=== PATIENT | female | born 1990 | race Two or more races ===

== ENCOUNTER 2017-02-10 12:15 | Inpatient (IN) | payer OTHER ==
[2017-02-10] MEDS ORDERED: ONDANSETRON 4 MG/2 ML VIAL IVPUSH ONE (14:59)
[2017-02-10] MEDS ORDERED: FAMOTIDINE 20 MG/50 ML IVPB 50 ML IVPB ONE ×2 (15:00→15:03)
[2017-02-10] MEDS ORDERED: SODIUM CHLORIDE 0.9% 1000 ML INFUS.BAG IV ONE (15:00)
[2017-02-10] MEDS ORDERED: ONDANSETRON 4 MG/2 ML VIAL ONE (15:03)
[2017-02-10] MEDS ORDERED: morphine CARPU-JECT 4 MG/1 ML DISP.SYRIN IVPUSH ONE (15:27)
--- NOTE | 2017-02-10 15:27 | PDOC ---
History of Present Illness - General History Source: Patient Exam Limitations: No Limitations <Vangie Thomason - Last Filed: 02/10/17 17:22> - General History Source: Patient Exam Limitations: No Limitations - History of Present Illness Initial Comments: 02/10/17 15:33 Patient is a 26 year old female, , with a significant past medical history of pituitary adenoma and s/p C section 5 weeks ago who presents to the ED with nausea, vomiting and abdominal pain since last night. Patient states that she developed diffuse abdominal pain burning in nature followed by nausea and 10 episodes of vomiting. Patient states that she drank 2-3 alcoholic drinks last night. She reports mild headache. She denies any hx of htn, hx of gallstones or pancreatitis. PCP - Dr. Dieter WALTON - Dr. Ritter <Fransisca Mckeon - Last Filed: 02/10/17 17:41> <Aniyah Camilo - Last Filed: 02/10/17 21:42> - General Chief Complaint: Lightheaded Stated Complaint: FATIGUE, DIZZINESS (POST-PREG) Past History - Reproductive History (#): 0 Para: 0 - Immunization History Td Vaccination: No TDAP Vaccination: No Immunization Up to Date: Yes - Psycho/Social/Smoking Cessation Hx Anxiety: No Suicidal Ideation: No Smoking Status: No Smoking History: Never smoked Have you smoked in the past 12 months: No Number of Cigarettes Smoked Daily: 0 Hx Alcohol Use: Yes (SOCIAL) Drug/Substance Use Hx: No Substance Use Type: None <Vangie Thomason - Last Filed: 02/10/17 17:22> <Fransisca Mckeon - Last Filed: 02/10/17 17:41> <Aniyah Camilo - Last Filed: 02/10/17 21:42> - Past Medical History Allergies/Adverse Reactions: Allergies Allergy/AdvReac Type Severity Reaction Status Date / Time No Known Allergies Allergy Verified 02/10/17 12:24 Home Medications: Ambulatory Orders Vit/Iron Fumarate/FA [ Tablet] 1 each PO DAILY 04/20/16 Review of Systems - Review of Systems Able to Perform ROS?: Yes Comments:: 02/10/17 15:34 GENERAL/CONSTITUTIONAL: No fever or chills. No weakness. HEAD, EYES, EARS, NOSE AND THROAT: No change in vision. No ear pain or discharge. No sore throat. GASTROINTESTINAL: +nausea, +vomiting, +abdominal pain. No diarrhea or constipation. GENITOURINARY: No dysuria, frequency, or change in urination. CARDIOVASCULAR: No chest pain or shortness of breath. RESPIRATORY: No cough, wheezing, or hemoptysis. MUSCULOSKELETAL: No joint or muscle swelling or pain. No neck or back pain. SKIN: No rash NEUROLOGIC: +headache. No vertigo, loss of consciousness, or change in strength/ sensation. ENDOCRINE: No increased thirst. No abnormal weight change. HEMATOLOGIC/LYMPHATIC: No anemia, easy bleeding, or history of blood clots. ALLERGIC/IMMUNOLOGIC: No hives or skin allergy. <Fransisca Mckeon - Last Filed: 02/10/17 17:41> *Physical Exam - Vital Signs Last Vital Signs Temp Pulse Resp BP Pulse Ox 98.0 F 77 20 140/83 99 02/10/17 12:21 02/10/17 12:21 02/10/17 12:21 02/10/17 12:21 02/10/17 12:21 <Vangie Thomason - Last Filed: 02/10/17 17:22> - Vital Signs Last Vital Signs Temp Pulse Resp BP Pulse Ox 98.0 F 77 20 140/83 99 02/10/17 12:21 02/10/17 12:21 02/10/17 12:21 02/10/17 12:21 02/10/17 12:21 - Physical Exam Comments: 02/10/17 15:36 GENERAL: Awake, alert, and fully oriented, in no acute distress HEAD: No signs of trauma EYES: PERRLA, EOMI, sclera anicteric, conjunctiva clear ENT: Auricles normal inspection, nares patent, Moist mucosa NECK: Normal ROM, supple, no lymphadenopathy, JVD, or masses LUNGS: Breath sounds equal, clear to auscultation bilaterally. No wheezes, and no crackles HEART: Regular rate and rhythm, normal S1 and S2, no murmurs, rubs or gallops ABDOMEN: (+)Abdomen epigastric RUQ tenderness, lower abdominal tenderness, +C section Incision site is clean, dry and intact, No palpable hernia, erythema. No CVA. Soft, normoactive bowel sounds. No guarding, no rebound. No masses EXTREMITIES: Normal range of motion, no edema. No clubbing or cyanosis. No cords, erythema, or tenderness NEUROLOGICAL: Normal speech SKIN: Warm, Dry, normal turgor, no rashes or lesions noted. <Fransisca Mckeon - Last Filed: 02/10/17 17:41> - Vital Signs Last Vital Signs Temp Pulse Resp BP Pulse Ox 98.0 F 74 16 134/75 100 02/10/17 12:21 02/10/17 16:48 02/10/17 16:48 02/10/17 17:40 02/10/17 19:16 <Aniyah Camilo - Last Filed: 02/10/17 21:42> Procedures - Bedside Ultrasound Bedside Ultrasound: Gallbladder Other: cholelithiasis: see [facility] for report <Vangie Thomason - Last Filed: 02/10/17 17:22> ED Treatment Course - LABORATORY CBC & Chemistry Diagram: 02/10/17 15:20 02/10/17 15:20 - Medications Given in the ED: ED Medications Discontinued Medications Generic Name Dose Route Start Last Admin Trade Name Freq PRN Reason Stop Dose Admin Ondansetron HCl 4 mg 02/10/17 14:59 02/10/17 15:19 Zofran Injection IVPUSH 02/10/17 15:00 4 mg ONCE ONE Administration Sodium Chloride 1,000 ml 02/10/17 15:00 02/10/17 15:19 Normal Saline - IV 02/10/17 15:01 1,000 ml ONCE ONE Administration <Vangie Thomason - Last Filed: 02/10/17 17:22> - LABORATORY CBC & Chemistry Diagram: 02/10/17 15:20 02/10/17 15:20 - Medications Given in the ED: ED Medications Discontinued Medications Generic Name Dose Route Start Last Admin Trade Name Freq PRN Reason Stop Dose Admin Famotidine/Sodium Chloride 50 mls @ 100 mls/hr 02/10/17 15:00 02/10/17 15:20 Pepcid 20 Mg Premixed Ivpb - IVPB 02/10/17 15:29 100 mls/hr ONCE ONE Administration Ondansetron HCl 4 mg 02/10/17 14:59 02/10/17 15:19 Zofran Injection IVPUSH 02/10/17 15:00 4 mg ONCE ONE Administration Sodium Chloride 1,000 ml 02/10/17 15:00 02/10/17 15:19 Normal Saline - IV 02/10/17 15:01 1,000 ml ONCE ONE Administration <Fransisca Mckeon - Last Filed: 02/10/17 17:41> - LABORATORY CBC & Chemistry Diagram: 02/10/17 15:20 02/10/17 15:20 - ADDITIONAL ORDERS Additional order review: Laboratory Results 02/10/17 02/10/17 02/10/17 18:20 18:20 18:00 D-Dimer Sodium Potassium Chloride Carbon Dioxide Anion Gap BUN Creatinine Creat Clearance w eGFR Random Glucose Uric Acid 3.6 Calcium Total Bilirubin AST ALT Alkaline Phosphatase LD Total 236 Total Protein Albumin Lipase Urine Color Red Urine Appearance Clear Urine pH 7.0 Urine Protein Negative Urine Glucose (UA) Negative Urine Ketones 1+ H Urine Blood Negative Urine Nitrite Negative Urine Bilirubin Negative Urine Urobilinogen Negative Ur Leukocyte Esterase Trace H Urine RBC 1 Urine WBC 2 Ur Epithelial Cells Rare Urine Mucus Rare Urine HCG, Qual Negative 02/10/17 02/10/17 18:00 15:20 D-Dimer < 200 Sodium 135 L Potassium 4.1 Chloride 99 Carbon Dioxide 26 Anion Gap 10 BUN 7 D Creatinine 0.6 Creat Clearance w eGFR > 60 Random Glucose 88 Uric Acid Calcium 8.8 Total Bilirubin 0.3 AST 22 D ALT 34 D Alkaline Phosphatase 114 D LD Total Total Protein 7.4 Albumin 3.9 Lipase 87 Urine Color Urine Appearance Urine pH Urine Protein Urine Glucose (UA) Urine Ketones Urine Blood Urine Nitrite Urine Bilirubin Urine Urobilinogen Ur Leukocyte Esterase Urine RBC Urine WBC Ur Epithelial Cells Urine Mucus Urine HCG, Qual 02/10/17 15:20 RBC 4.48 MCV 86.1 MCHC 32.5 RDW 14.3 MPV 8.9 Neutrophils % 85.6 H D Lymphocytes % 7.8 L D Monocytes % 6.2 Eosinophils % 0.0 D Basophils % 0.4 - Medications Given in the ED: ED Medications Discontinued Medications Generic Name Dose Route Start Last Admin Trade Name Freq PRN Reason Stop Dose Admin Famotidine/Sodium Chloride 50 mls @ 100 mls/hr 02/10/17 15:00 02/10/17 15:20 Pepcid 20 Mg Premixed Ivpb - IVPB 02/10/17 15:29 100 mls/hr ONCE ONE Administration Morphine Sulfate 4 mg 02/10/17 15:27 02/10/17 15:46 Morphine Injection - IVPUSH 02/10/17 15:28 4 mg ONCE ONE Administration Ondansetron HCl 4 mg 02/10/17 14:59 02/10/17 15:19 Zofran Injection IVPUSH 02/10/17 15:00 4 mg ONCE ONE Administration Sodium Chloride 1,000 ml 02/10/17 15:00 02/10/17 15:19 Normal Saline - IV 02/10/17 15:01 1,000 ml ONCE ONE Administration <Aniyah Camilo - Last Filed: 02/10/17 21:42> Medical Decision Making - Medical Decision Making 02/10/17 15:23 26 yo F 5 weeks post s/p c section ( for failure to progress, post dates ) here with n/v abd pain. states n/v started today at 3 am. vomiting with any po intact. also c/o burning abd pain, worse lower abd near c section scar. no fever or chills. no mod factors. no vertigo. not c/o urinary complaints. . pt is breast feeding. did have questionable elevated bp during delivery, was not on any hypertensives. no mod factors. pain worse after vomiting. on exam awake alert , lungs clear. heart reg tachycardia. abd soft mild epigastric ttp, ruq ttp, and lower periincisional pain. no palp hernia, no erythema no redness. ext wwp no edema. differential: n/v/abd pain post 5 weeks. abd pain.. differential: cholelithiaisis, ace, wound infection, uti, obstruction. plan ct a/p pain control bedside us ruq. ua antiemetics ivf. pt bp elevated. late for eclempsia , will control pain , reassess. 02/10/17 15:40 focused ED ultrasound RUQ , indication n/v r/o cholelithiasis finding: GB scanned in two planes. small stones with shadowing noted. wall no edema, no thickening measured 1.2 mm. CBD normal at 3.3 mm . neg sonographic gregg's no pericholecystic fluid. impression: cholelithiasis. 02/10/17 17:25 d/w dr. morales for dr. robertson ( ob/) pt without h/o hypertension per her chart review. 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 <Vangie Thomason - Last Filed: 02/10/17 17:22> - Medical Decision Making 02/10/17 21:[address] Sarah Gilbert (via answering service) Awaiting call back <Aniyah Camilo - Last Filed: 02/10/17 21:42> *DC/Admit/Observation/Transfer <Vangie Thomason - Last Filed: 02/10/17 17:22> - Attestations Scribe Attestion: 02/10/17 15:37 Documentation prepared by RADHA Craig, acting as chief medical physicist for Vangie Thomason MD. <Fransisca Mckeon - Last Filed: 02/10/17 17:41> <Aniyah Camilo - Last Filed: 02/10/17 21:42> - Referrals Referrals: Dieter Allen MD [Primary Care Provider] -
[2017-02-10] MEDS ORDERED: morphine CARPU-JECT 4 MG/1 ML DISP.SYRIN ONE (15:31)
[2017-02-10 15:34] LABS: BASOPHIL 0.4 % (0-2.0); MCH 27.9 pg (25.7-33.7); MCHC 32.5 g/dl (32.0-36.0); MEAN CELL VOLUME 86.1 fl (80-96); MEAN PLT VOLUME 8.9 fl (7.5-11.1); NEUTROPHILS 85.6 % (42.8-82.8); PLATELET COUNT 313 K/MM3 (134-434); RDW 14.3 % (11.6-15.6); WHITE BLOOD COUNT 15.9 K/mm3 (4.0-10.0)
[2017-02-10 15:58] LABS: ALBUMIN 3.9 g/dl (3.4-5.0); ALK PHOS 114 U/L (45-117); ANION GAP 10 (8-16); BILIRUBIN,TOTAL 0.3 mg/dL (0.2-1.0); CALCIUM 8.8 mg/dL (8.5-10.1); CO2 26 mmol/L (21-32); CREATININE 0.6 mg/dL (0.55-1.02); GLUCOSE,RANDOM 88 mg/dL (74-106); SGOT/AST 22 U/L (15-37); SGPT/ALT 34 U/L (12-78); TOT PROT 7.4 g/dl (6.4-8.2)
[2017-02-10 18:20] LABS: URIC ACID 3.6 mg/dL (2.6-7.2)
[2017-02-10 18:48] LABS: URINE APPEARANCE CLEAR; URINE BILIRUBIN NEGATIVE (NEGATIVE); URINE BLOOD NEGATIVE (NEGATIVE); URINE COLOR RED; URINE GLUCOSE (UA) NEGATIVE (NEGATIVE); URINE KETONE 1+ (NEGATIVE); URINE NITRITE NEGATIVE (NEGATIVE); URINE PROTEIN NEGATIVE (NEGATIVE); URINE UROBILINOGEN NEGATIVE E.U./dl (0.2-1.0)
[2017-02-10 18:54] LABS: URINE LEUK ESTERASE TRACE (NEGATIVE)
[2017-02-10 19:02] LABS: URINE MUCUS RARE; URINE RBC 1 /hpf (0-3); URINE WBC 2 /hpf (3-5)
--- NOTE | 2017-02-10 21:48 | PDOC ---
*Physical Exam - Vital Signs Last Vital Signs Temp Pulse Resp BP Pulse Ox 98.0 F 74 16 134/75 100 02/10/17 12:21 02/10/17 16:48 02/10/17 16:48 02/10/17 17:40 02/10/17 19:16 <Jim Carvalho - Last Filed: 02/10/17 21:48> - Vital Signs Last Vital Signs Temp Pulse Resp BP Pulse Ox 98.0 F 74 16 134/75 100 02/10/17 12:21 02/10/17 16:48 02/10/17 16:48 02/10/17 17:40 02/10/17 19:16 <TonAniyah - Last Filed: 02/10/17 22:09> ED Treatment Course - LABORATORY CBC & Chemistry Diagram: 02/10/17 15:20 02/10/17 15:20 - ADDITIONAL ORDERS Additional order review: Laboratory Results 02/10/17 02/10/17 02/10/17 18:20 18:20 18:00 D-Dimer Sodium Potassium Chloride Carbon Dioxide Anion Gap BUN Creatinine Creat Clearance w eGFR Random Glucose Uric Acid 3.6 Calcium Total Bilirubin AST ALT Alkaline Phosphatase LD Total 236 Total Protein Albumin Lipase Urine Color Red Urine Appearance Clear Urine pH 7.0 Urine Protein Negative Urine Glucose (UA) Negative Urine Ketones 1+ H Urine Blood Negative Urine Nitrite Negative Urine Bilirubin Negative Urine Urobilinogen Negative Ur Leukocyte Esterase Trace H Urine RBC 1 Urine WBC 2 Ur Epithelial Cells Rare Urine Mucus Rare Urine HCG, Qual Negative 02/10/17 02/10/17 18:00 15:20 D-Dimer < 200 Sodium 135 L Potassium 4.1 Chloride 99 Carbon Dioxide 26 Anion Gap 10 BUN 7 D Creatinine 0.6 Creat Clearance w eGFR > 60 Random Glucose 88 Uric Acid Calcium 8.8 Total Bilirubin 0.3 AST 22 D ALT 34 D Alkaline Phosphatase 114 D LD Total Total Protein 7.4 Albumin 3.9 Lipase 87 Urine Color Urine Appearance Urine pH Urine Protein Urine Glucose (UA) Urine Ketones Urine Blood Urine Nitrite Urine Bilirubin Urine Urobilinogen Ur Leukocyte Esterase Urine RBC Urine WBC Ur Epithelial Cells Urine Mucus Urine HCG, Qual 02/10/17 15:20 RBC 4.48 MCV 86.1 MCHC 32.5 RDW 14.3 MPV 8.9 Neutrophils % 85.6 H D Lymphocytes % 7.8 L D Monocytes % 6.2 Eosinophils % 0.0 D Basophils % 0.4 - Medications Given in the ED: ED Medications Discontinued Medications Generic Name Dose Route Start Last Admin Trade Name Jose PRN Reason Stop Dose Admin Famotidine/Sodium Chloride 50 mls @ 100 mls/hr 02/10/17 15:00 02/10/17 15:20 Pepcid 20 Mg Premixed Ivpb - IVPB 02/10/17 15:29 100 mls/hr ONCE ONE Administration Morphine Sulfate 4 mg 02/10/17 15:27 02/10/17 15:46 Morphine Injection - IVPUSH 02/10/17 15:28 4 mg ONCE ONE Administration Ondansetron HCl 4 mg 02/10/17 14:59 02/10/17 15:19 Zofran Injection IVPUSH 02/10/17 15:00 4 mg ONCE ONE Administration Sodium Chloride 1,000 ml 02/10/17 15:00 02/10/17 15:19 Normal Saline - IV 02/10/17 15:01 1,000 ml ONCE ONE Administration <Jim Carvalho - Last Filed: 02/10/17 21:48> - LABORATORY CBC & Chemistry Diagram: 02/10/17 15:20 02/10/17 15:20 - ADDITIONAL ORDERS Additional order review: Laboratory Results 02/10/17 02/10/17 02/10/17 18:20 18:20 18:00 D-Dimer Sodium Potassium Chloride Carbon Dioxide Anion Gap BUN Creatinine Creat Clearance w eGFR Random Glucose Uric Acid 3.6 Calcium Total Bilirubin AST ALT Alkaline Phosphatase LD Total 236 Total Protein Albumin Lipase Urine Color Red Urine Appearance Clear Urine pH 7.0 Urine Protein Negative Urine Glucose (UA) Negative Urine Ketones 1+ H Urine Blood Negative Urine Nitrite Negative Urine Bilirubin Negative Urine Urobilinogen Negative Ur Leukocyte Esterase Trace H Urine RBC 1 Urine WBC 2 Ur Epithelial Cells Rare Urine Mucus Rare Urine HCG, Qual Negative 02/10/17 02/10/17 18:00 15:20 D-Dimer < 200 Sodium 135 L Potassium 4.1 Chloride 99 Carbon Dioxide 26 Anion Gap 10 BUN 7 D Creatinine 0.6 Creat Clearance w eGFR > 60 Random Glucose 88 Uric Acid Calcium 8.8 Total Bilirubin 0.3 AST 22 D ALT 34 D Alkaline Phosphatase 114 D LD Total Total Protein 7.4 Albumin 3.9 Lipase 87 Urine Color Urine Appearance Urine pH Urine Protein Urine Glucose (UA) Urine Ketones Urine Blood Urine Nitrite Urine Bilirubin Urine Urobilinogen Ur Leukocyte Esterase Urine RBC Urine WBC Ur Epithelial Cells Urine Mucus Urine HCG, Qual 02/10/17 15:20 RBC 4.48 MCV 86.1 MCHC 32.5 RDW 14.3 MPV 8.9 Neutrophils % 85.6 H D Lymphocytes % 7.8 L D Monocytes % 6.2 Eosinophils % 0.0 D Basophils % 0.4 - Medications Given in the ED: ED Medications Discontinued Medications Generic Name Dose Route Start Last Admin Trade Name Jose PRN Reason Stop Dose Admin Famotidine/Sodium Chloride 50 mls @ 100 mls/hr 02/10/17 15:00 02/10/17 15:20 Pepcid 20 Mg Premixed Ivpb - IVPB 02/10/17 15:29 100 mls/hr ONCE ONE Administration Morphine Sulfate 4 mg 02/10/17 15:27 02/10/17 15:46 Morphine Injection - IVPUSH 02/10/17 15:28 4 mg ONCE ONE Administration Ondansetron HCl 4 mg 02/10/17 14:59 02/10/17 15:19 Zofran Injection IVPUSH 02/10/17 15:00 4 mg ONCE ONE Administration Sodium Chloride 1,000 ml 02/10/17 15:00 02/10/17 15:19 Normal Saline - IV 02/10/17 15:01 1,000 ml ONCE ONE Administration <Aniyah Camilo - Last Filed: 02/10/17 22:09> Medical Decision Making - Medical Decision Making 02/10/17 21:[address] Sarah Gilbert (via answering service) Awaiting call back 02/10/17 21:52 Patient's case discussed with Dr. Gilbert 02/10/17 22:[address] Jay Smyth (via [phone]) Awaiting call back 02/10/17 22:03 Patient's case discussed with Dr. Smyth <Aniyah Camilo - Last Filed: 02/10/17 22:09> *DC/Admit/Observation/Transfer - Discharge Dispostion Admit: Yes <Jim Carvalho - Last Filed: 02/10/17 21:48> <Aniyah Camilo - Last Filed: 02/10/17 22:09> Diagnosis at time of Disposition: Abdominal pain Qualifiers: Abdominal location: generalized Qualified Code(s): R10.84 - Generalized abdominal pain Acute appendicitis Qualifiers: Acute appendicitis type: other Qualified Code(s): K35.89 - Other acute appendicitis - Referrals Referrals: Dieter Allen MD [Primary Care Provider] - - Patient Instructions - Post Discharge Activity
[2017-02-10] MEDS ORDERED: PIPERACILLIN/TAZOB 3.375 GM 3.375 GM in DEXTROSE 5%-WATER - 50 ML IVPB ONE (22:03)
[2017-02-10] MEDS ORDERED: PIPERACILLIN/TAZOB 3.375 GM 50 ML IVPB ONE (23:01)
[2017-02-10 23:57] LABS: INR 1.3 (0.82-1.09); PROTHROMBIN TIME (PATIENT) 14.4 SEC (9.98-11.88)
[2017-02-11 01:38] VITALS: BMI 39.2
[2017-02-11] MEDS ORDERED: DEXTROSE 5%-0.45% SALINE 1,000 ML IV SCH (01:45)
[2017-02-11] MEDS ORDERED: ONDANSETRON 4 MG/2 ML VIAL IVPUSH PRN ×2 (01:46→11:32)
[2017-02-11] MEDS ORDERED: PIPERACILLIN/TAZOB 3.375 GM/50 ML PRE-DOCKED IVPB SCH (02:00)
[2017-02-11] MEDS: morphine CARPU-JECT 4 MG/1 ML DISP.SYRIN IVPUSH PRN ×2 (02:16→08:15)
[2017-02-11] MEDS ORDERED: PIPERACILLIN/TAZOB 3.375 GM/50 ML PRE-DOCKED IVPB ONE (03:00)
[2017-02-11 06:56] LABS: BASOPHIL 0.4 % (0-2.0); EOSINOPHIL 1.3 % (0-4.5); MCH 28.7 pg (25.7-33.7); MCHC 33.5 g/dl (32.0-36.0); MEAN CELL VOLUME 85.6 fl (80-96); MEAN PLT VOLUME 8.3 fl (7.5-11.1); NEUTROPHILS 74.7 % (42.8-82.8); PLATELET COUNT 292 K/MM3 (134-434); RDW 14.2 % (11.6-15.6); WHITE BLOOD COUNT 10.9 K/mm3 (4.0-10.0)
[2017-02-11 07:31] LABS: ALBUMIN 3.1 g/dl (3.4-5.0); ALK PHOS 95 U/L (45-117); ANION GAP 8 (8-16); BILIRUBIN,TOTAL 0.6 mg/dL (0.2-1.0); CALCIUM 8.1 mg/dL (8.5-10.1); CO2 27 mmol/L (21-32); CREATININE 0.7 mg/dL (0.55-1.02); GLUCOSE,RANDOM 119 mg/dL (74-106); SGOT/AST 18 U/L (15-37); SGPT/ALT 28 U/L (12-78); TOT PROT 6.3 g/dl (6.4-8.2)
--- NOTE | 2017-02-11 08:49 | CONSULT ---
Consult Consult Specialty:: Surgery Reason for Consultation:: Acute appendicitis - History of Present Illness Chief Complaint: Abdominal pain History of Present Illness: 26 female presents to the ER with RLQ pain x 1 day + Nausea Denies fevers No similar pain in the past - History Source History Provided By: Patient, Medical Record Limitations to Obtaining History: No Limitations - Past Medical History ...LMP: 03/16/16 - Alcohol/Substance Use Hx Alcohol Use: Yes (SOCIAL) - Smoking History Smoking history: Never smoked Have you smoked in the past 12 months: No Aproximately how many cigarettes per day: 0 Home Medications - Allergies Allergies/Adverse Reactions: Allergies Allergy/AdvReac Type Severity Reaction Status Date / Time No Known Allergies Allergy Verified 02/10/17 12:24 - Home Medications Home Medications: Ambulatory Orders Vit/Iron Fumarate/FA [ Tablet] 1 each PO DAILY 04/20/16 Family Disease History - Family Disease History Family History: Denies Review of Systems - Review of Systems Constitutional: denies: Chills, Fever Eyes: reports: No Symptoms HENT: reports: No Symptoms Neck: reports: No Symptoms Cardiovascular: denies: Chest Pain Respiratory: denies: Cough Gastrointestinal: reports: Abdominal Pain. denies: Vomiting Genitourinary: reports: No Symptoms Neurological: denies: Change in LOC Pain Intensity: 5 Physical Exam Vital Signs: Vital Signs Temperature 98.5 F 02/11/17 05:46 Pulse Rate 75 02/11/17 05:46 Respiratory Rate 20 02/11/17 05:46 Blood Pressure 108/68 02/11/17 05:46 O2 Sat by Pulse Oximetry (%) 98 02/11/17 01:44 Constitutional: Yes: Calm Eyes: Yes: WNL HENT: Yes: WNL Neck: Yes: Supple Cardiovascular: Yes: Regular Rate and Rhythm Respiratory: Yes: Regular Gastrointestinal: Yes: Soft, Tenderness (RLQ). No: Distention Extremities: Yes: WNL Neurological: Yes: Alert, Oriented Labs: CBC, BMP 02/11/17 05:50 02/11/17 05:50 Imaging - Results Cat Scan: Report Reviewed, Image Reviewed Problem List - Problems (1) Abdominal pain Code(s): R10.9 - UNSPECIFIED ABDOMINAL PAIN Qualifiers: Abdominal location: generalized Qualified Code(s): R10.84 - Generalized abdominal pain (2) Acute appendicitis Code(s): K35.80 - UNSPECIFIED ACUTE APPENDICITIS Qualifiers: Acute appendicitis type: with localized peritonitis Qualified Code(s ): K35.3 - Acute appendicitis with localized peritonitis Assessment/Plan 26 female with acute appendicitis NPO IV fluids Antibiotics Laparoscopic possible open appendectomy Risks and benefits explained Understands and agrees
[2017-02-11] MEDS ORDERED: BUPIVACAINE HCL/PF 0.5% (5MG/ML) 10 ML VIAL ONE (09:02)
[2017-02-11] MEDS ORDERED: HEPARIN NA (PORCINE) 5,000 UNITS/ML 1ML VIAL SQ SCH (10:00)
[2017-02-11] MEDS ORDERED: MIDAZOLAM HCL 2 MG/2 ML SINGLE DOSE VIAL ONE (10:13)
[2017-02-11] MEDS ORDERED: ROCURONIUM BROMIDE 50 MG/5 ML VIAL ONE (10:13)
[2017-02-11] MEDS ORDERED: SUCCINYLCHOLINE CHLORIDE 200 MG/10 ML VIAL ONE (10:13)
[2017-02-11] MEDS ORDERED: PROPOFOL 20 ML ONE (10:13)
[2017-02-11] MEDS ORDERED: METRONIDAZOLE 500 MG PREMIXED 100 ML IVPB ONE (10:33)
[2017-02-11] MEDS ORDERED: LEVOFLOXACIN 500 MG PREMIX BAG IVPB ONE (10:34)
[2017-02-11] MEDS ORDERED: LEVOFLOXACIN 500 MG IVPB 100 ML IVPB ONE (10:38)
[2017-02-11] MEDS ORDERED: DEXAMETHASONE SOD PHOSPHATE 4 MG/1 ML VIAL ONE (10:41)
[2017-02-11] MEDS ORDERED: METRONIDAZOLE 500 MG PREMIXED 500 MG/100 ML MG IVPB ONE (10:42)
[2017-02-11] MEDS ORDERED: NEOSTIGMINE METHYLSULFATE 0.5 MG/ML - 10 ML MDV ONE (11:08)
[2017-02-11] MEDS ORDERED: KETOROLAC TROMETHAMINE 30 MG/1 ML VIAL ONE (11:13)
[2017-02-11] MEDS ORDERED: BUPIVACAINE HCL/PF (5 MG/ML) 30 ML VIAL IJ ONE (11:17)
--- NOTE | 2017-02-11 11:21 | OP ---
Operative Note - Note: Operative Date: 02/11/17 Pre-Operative Diagnosis: Acute appendicitis Operation: Laparoscopic appendectomy Findings: Perforated appendix with pus in the pelvis Post-Operative Diagnosis: Other (Perforated appendicitis) Surgeon: Jay Smyth Language Arts Teacher: Charlie Patel Anesthesia: General Specimens Removed: Appendix Estimated Blood Loss (mls): 5 Operative Report Dictated: Yes
[2017-02-11] MEDS ORDERED: HYDROmorphone HCL CARPU-JECT 1 MG/1 ML DISP.SYRIN IVPB PRN ×2 (11:23→11:47)
[2017-02-11] MEDS ORDERED: SODIUM CHLORIDE 1,000 ML IV SCH (11:30)
--- NOTE | 2017-02-11 11:37 | SURG ---
Surgery Staffing Program Manager Note Staffing Program Manager: Charlie Patel PA-C Date of Service: 02/11/17 Diagnosis: Acute appendicitis Procedure: Laparoscopic appendectomy. Copious irrigation Findings: Perforated appendix with pus in the pelvis I was present for the entirety of the operative procedure. For further detail, please refer to operative report. Visit type - Case Type Case Type: ED Admission - Emergency Emergency Visit: Yes ED Registration Date: 02/10/17 Care time: The patient presented to the Emergency Department on the above date and was hospitalized for further evaluation of their emergent condition. - New patient This patient is new to me today: Yes Date on this admission: 02/11/17
--- NOTE | 2017-02-11 12:21 | OP ---
DATE OF OPERATION: 02/11/2017 SURGEON: Jay Smyth MD WEB OFFSET PRESS FEEDER: ROSALBA Serrato PREOPERATIVE DIAGNOSIS: Acute appendicitis. POSTOPERATIVE DIAGNOSIS: Perforated appendicitis with pus in the right pericolic gutter and pelvis. SPECIMEN: Appendix ESTIMATED BLOOD LOSS: 5 mL. DRAINS: None. ANESTHESIA: General endotracheal. REASON FOR PROCEDURE: This is a 26-year-old female who presents to the hospital with abdominal pain radiating to the right lower quadrant. On imaging and lab testing she was found to have an elevated white blood cell count and findings consistent with acute appendicitis. Because of this, she was consented or laparoscopic possible open appendectomy. The risks and benefits of the procedure were explained. These included bleeding, infection, hernia, WA, PE, injury to surrounding structures including the bowel, colon, ureter, ovaries, vessel injury, nerve injury, abscess formation, anastomotic leak, and sepsis as some of the possible complications. She understood and signed informed consent. DESCRIPTION OF PROCEDURE: The patient was placed supine on the operating table and underwent general endotracheal intubation. The Delacruz catheter was inserted by the RN. The abdomen was prepped and draped in the usual sterile fashion. A timeout was performed. A 5-mm incision was made in the infraumbilical region. Entrance to the abdominal cavity was obtained using optical 5-mm trocar under direct visualization with laparoscope and pneumoperitoneum was established. A 5-mm trocar was placed in the suprapubic region and a 12-mm trocar placed in the left lower quadrant. The patient was placed in Trendelenburg right side up position. Immediately pus was noted in the right pericolic gutter and the pelvis. The appendix was noted to be medial and was grasped and there was noted to be perforation of the appendix. The base of appendix was identified and a window was created within the mesentery. The base of the appendix was transected using a GI stapler with white load. The remainder of the appendix was free from its surrounding structures and the mesoappendix was ligated using a LigaSure device. Hemostasis was noted and the staple line was inspected and noted to be fully intact. Specimen was placed in an EndoCatch bag. Suction of the purulent discharge was performed and sent off for culture. The abdomen, right pericolic gutter and pelvis were all copiously irrigated and suctioned until clear. The appendix was removed from the abdominal cavity and sent off as specimen. The fascia at the 12-mm trocar site was closed using a 0 Vicryl suture with a Flaco-Vika device. The pneumoperitoneum was desufflated. All trocars were removed. The fascial suture was secured. Marcaine was injected along incisions. Hemostasis of all wounds was identified. All skin incisions were closed using 4-0 Biosyn. Sterile dressings were applied. The patient tolerated the procedure well and was transferred to the recovery room in stable condition. Cynthia [id number]
[2017-02-11] MEDS ORDERED: PROMETHAZINE HCL 25 MG/1 ML VIAL IVPUSH PRN (12:39)
[2017-02-11] MEDS ORDERED: LACTATED RINGERS SOLUTION 1,000 ML IV SCH (12:45)
[2017-02-11] MEDS: SODIUM CHLORIDE 1,000 ML IV SCH (13:15)
--- NOTE | 2017-02-11 16:52 | CONSULT ---
Consult Consult Specialty:: infectious diseases Reason for Consultation:: perforated appendix - History of Present Illness Chief Complaint: abd pain History of Present Illness: 26 year old female, with a past medical history of pituitary adenoma and s/p C section 5 weeks ago who got admitted because of nausea, vomiting and abdominal pain . Patient states that she developed diffuse abdominal pain burning in nature followed by nausea and 10 episodes of vomiting. Patient states that she drank 2-3 alcoholic drinks last night. She reports mild headache. She denies any hx of htn, hx of gallstones or pancreatitis. patient was worked up and found to ahve acute appendicitis and patient was taken to the operating room and operated spoke [facility] surgery team according to them the peritoneum was soiled wiht pus currently patient still has abd pain - History Source History Provided By: Patient, Medical Record Limitations to Obtaining History: No Limitations - Past Medical History ...LMP: 03/16/16 - Alcohol/Substance Use Hx Alcohol Use: Yes (SOCIAL) - Smoking History Smoking history: Never smoked Have you smoked in the past 12 months: No Aproximately how many cigarettes per day: 0 Home Medications - Allergies Allergies/Adverse Reactions: Allergies Allergy/AdvReac Type Severity Reaction Status Date / Time No Known Allergies Allergy Verified 02/10/17 12:24 - Home Medications Home Medications: Ambulatory Orders Vit/Iron Fumarate/FA [ Tablet] 1 each PO DAILY 04/20/16 Docusate Sodium [Colace -] 100 mg PO TID #90 capsule 02/11/17 Oxycodone HCl/Acetaminophen [Percocet 5-325 mg Tablet] 1 - 2 tab PO Q6H #28 tab MDD 4 02/11/17 Review of Systems - Review of Systems Constitutional: reports: Fever Eyes: reports: No Symptoms HENT: reports: No Symptoms Neck: reports: No Symptoms Cardiovascular: reports: No Symptoms Respiratory: reports: No Symptoms Gastrointestinal: reports: Abdominal Pain, Bloating, Vomiting Genitourinary: reports: No Symptoms Musculoskeletal: reports: No Symptoms Integumentary: reports: No Symptoms Neurological: reports: No Symptoms Endocrine: reports: No Symptoms Hematology/Lymphatic: reports: No Symptoms Psychiatric: reports: No Symptoms Physical Exam Vital Signs: Vital Signs Temperature 98.3 F 02/11/17 12:25 Pulse Rate 53 L 02/11/17 12:25 Respiratory Rate 16 02/11/17 12:25 Blood Pressure 110/59 02/11/17 12:25 O2 Sat by Pulse Oximetry (%) 100 02/11/17 12:25 Constitutional: Yes: Well Nourished, Calm, Obese Eyes: Yes: Conjunctiva Clear HENT: Yes: Atraumatic Neck: Yes: Supple, Trachea Midline Cardiovascular: Yes: Regular Rate and Rhythm Respiratory: Yes: Regular, CTA Bilaterally Gastrointestinal: Yes: Soft, Hypoactive Bowel Sounds, Tenderness Musculoskeletal: Yes: WNL Extremities: Yes: WNL Wound/Incision: Yes: Clean/Dry Neurological: Yes: Alert, Oriented Psychiatric: Yes: Alert, Oriented Labs: CBC, BMP 02/11/17 05:50 02/11/17 05:50 Imaging - Results Cat Scan: Report Reviewed, Image Reviewed Other: Report Reviewed, Image Reviewed Assessment/Plan perforated appendicitis obesity peritonitis plan continue abx hydration rest as per primary
[2017-02-11] MEDS ORDERED: KETOROLAC TROMETHAMINE 30 MG/1 ML VIAL IVPUSH ONE (17:00)
[2017-02-11] MEDS: METRONIDAZOLE 500 MG PREMIXED 100 ML IVPB SCH (17:20)
[2017-02-11] MEDS: PIPERACILLIN/TAZOB 3.375 GM 50 ML IVPB SCH (17:21)
[2017-02-11] MEDS ORDERED: METRONIDAZOLE 500 MG PREMIXED 100 ML IVPB SCH (18:00)
[2017-02-11] MEDS ORDERED: oxyCODONE HCL 5 MG TABLET PO ONE (19:40)
[2017-02-11] MEDS: oxyCODONE HCL 5 MG TABLET PO PRN (19:59)
[2017-02-11] MEDS: ACETAMINOPHEN 325 MG TABLET (FP) PO PRN (20:00)
--- NOTE | 2017-02-11 20:48 | HP ---
Admitting History and Physical - Admission History of Present Illness: Pt is a 26 y/o female with a PMH significant for pituitary adenoma. Pt had a C -section 5 weeks ago. Pt now presented to the ER bc of nausea, vomiting and abdominal pain . Patient states that she developed diffuse abdominal pain burning in nature followed by nausea and 10 episodes of vomiting. Patient states that she drank 2-3 alcoholic drinks last night. Pt denies any fever/ chills. CT scan abd showed acute peritonitis w/ a WBC of 15,000 on admission and was started on IV antibx. 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) ...LMP: 03/16/16 - Past Surgical History Past Surgical History: Yes: - Smoking History Smoking history: Never smoked Have you smoked in the past 12 months: No Aproximately how many cigarettes per day: 0 - Alcohol/Substance Use Hx Alcohol Use: Yes (SOCIAL) Home Medications - Allergies Allergies/Adverse Reactions: Allergies Allergy/AdvReac Type Severity Reaction Status Date / Time No Known Allergies Allergy Verified 02/10/17 12:24 - Home Medications Home Medications: Ambulatory Orders Vit/Iron Fumarate/FA [ Tablet] 1 each PO DAILY 04/20/16 Docusate Sodium [Colace -] 100 mg PO TID #90 capsule 02/11/17 Oxycodone HCl/Acetaminophen [Percocet 5-325 mg Tablet] 1 - 2 tab PO Q6H #28 tab MDD 4 02/11/17 Family Disease History - Family Disease History Family History: Unremarkable Review of Systems - Review of Systems Constitutional: reports: Loss of Appetite, Weakness Eyes: reports: No Symptoms HENT: reports: No Symptoms Neck: reports: No Symptoms Cardiovascular: reports: No Symptoms Respiratory: reports: No Symptoms Gastrointestinal: reports: Abdominal Pain, Nausea, Vomiting Physical Examination Vital Signs: Vital Signs Temperature 97.8 F 02/11/17 19:39 Pulse Rate 56 L 02/11/17 19:39 Respiratory Rate 18 02/11/17 19:39 Blood Pressure 106/57 02/11/17 19:39 O2 Sat by Pulse Oximetry (%) 100 02/11/17 12:25 Constitutional: Yes: Well Nourished, No Distress HENT: Yes: WNL Neck: Yes: WNL, Supple Cardiovascular: Yes: WNL, Regular Rate and Rhythm Respiratory: Yes: WNL, Regular, CTA Bilaterally Gastrointestinal: Yes: Abdomen, Obese ((+) tenderness around incisional sites) Labs: CBC, BMP 02/11/17 05:50 02/11/17 05:50 Problem List - Problems (1) Acute appendicitis Assessment/Plan: S/P lap appy Cont IV antibx WBC has decreased Pt toelrating diet Cont IVF Pain managed Code(s): K35.80 - UNSPECIFIED ACUTE APPENDICITIS Qualifiers: Acute appendicitis type: with localized peritonitis Qualified Code(s ): K35.3 - Acute appendicitis with localized peritonitis
[2017-02-11] MEDS: HEPARIN NA (PORCINE) 5,000 UNITS/ML 1ML VIAL SQ SCH (21:15)
[2017-02-12] MEDS: METRONIDAZOLE 500 MG PREMIXED 100 ML IVPB SCH ×3 (01:20→17:45)
[2017-02-12] MEDS: ACETAMINOPHEN 325 MG TABLET (FP) PO PRN ×4 (01:43→22:09)
[2017-02-12] MEDS: oxyCODONE HCL 5 MG TABLET PO PRN ×5 (01:44→22:09)
[2017-02-12] MEDS: PIPERACILLIN/TAZOB 3.375 GM 50 ML IVPB SCH ×3 (01:45→18:25)
[2017-02-12 06:51] LABS: BASOPHIL 0.2 % (0-2.0); EOSINOPHIL 0.1 % (0-4.5); MCH 28.7 pg (25.7-33.7); MCHC 33.2 g/dl (32.0-36.0); MEAN CELL VOLUME 86.4 fl (80-96); MEAN PLT VOLUME 8.3 fl (7.5-11.1); NEUTROPHILS 77.4 % (42.8-82.8); PLATELET COUNT 271 K/MM3 (134-434); RDW 14.1 % (11.6-15.6); WHITE BLOOD COUNT 11.1 K/mm3 (4.0-10.0)
[2017-02-12 07:21] LABS: ANION GAP 8 (8-16); CO2 25 mmol/L (21-32); CREATININE 0.6 mg/dL (0.55-1.02); GLUCOSE,RANDOM 105 mg/dL (74-106)
--- NOTE | 2017-02-12 07:54 | PN ---
Progress Note (short form) - Note Progress Note: POD #1 Alert. Siting in bed. C/o incisional tenderness. Pain control via PRN meds. Using her incentive spirometer as directed. Voiding spontaneously. Hasn't gotten OOB since surgery. ID note appreciated. Had some issues with nausea last night but since resolved. Denies fever, chills, CP or SOB. Last Vital Signs Temp Pulse Resp BP Pulse Ox 98.3 F 56 L 18 122/71 98 02/12/17 05:52 02/12/17 05:52 02/12/17 05:52 02/12/17 05:52 02/11/17 21:00 TREND 02/10/17 02/11/17 02/12/17 15:20 05:50 06:00 WBC 15.9 H D 10.9 H D 11.1 H PE Gen: alert. NAD ABd: all surgical ports intact. no hematoma LE: scd b/l. NT <Charlie Patel P - Last Filed: 02/12/17 07:54> - Note Progress Note: Agree Pain controlled On diet Afebrile Abd soft WBC 11 H/H stable IV antibiotics x 48 hours post op Can discharge home 02/13/17 on PO antibiotics <Jay Smyth - Last Filed: 02/13/17 08:01> Problem List - Problems (1) Acute appendicitis Assessment/Plan: POD #1 s/p lap appy (perforated, pus in pelvis) OOB and ambulate Incentive spirometer IV ABX Switch to PO pain management Advance to regular diet Cont care per primary medical team Code(s): K35.80 - UNSPECIFIED ACUTE APPENDICITIS Qualifiers: Acute appendicitis type: with localized peritonitis Qualified Code(s ): K35.3 - Acute appendicitis with localized peritonitis <Charlie Patel P - Last Filed: 02/12/17 07:54> - Problems (1) Abdominal pain Code(s): R10.9 - UNSPECIFIED ABDOMINAL PAIN Qualifiers: Abdominal location: generalized Qualified Code(s): R10.84 - Generalized abdominal pain (2) Acute appendicitis Code(s): K35.80 - UNSPECIFIED ACUTE APPENDICITIS Qualifiers: Acute appendicitis type: with localized peritonitis Qualified Code(s ): K35.3 - Acute appendicitis with localized peritonitis <Jay Smyth - Last Filed: 02/13/17 08:01>
[2017-02-12] MEDS ORDERED: LEVOFLOXACIN 500 MG IVPB 100 ML IVPB SCH (10:00)
[2017-02-12] MEDS ORDERED: PT OWN MED DRAWER 7, Y5N ONE (10:06)
[2017-02-12] MEDS: HEPARIN NA (PORCINE) 5,000 UNITS/ML 1ML VIAL SQ SCH ×2 (10:20→21:59)
--- NOTE | 2017-02-12 10:26 | PN ---
Physical Exam: SUBJECTIVE: Patient seen and examined at bedside. C/o tenderness to LLQ over surgical incision. Pt reports intermittent nausea but no vomiting. Has not passed flatus or stools yet. Patient encouraged to get OOB and perform pulmonary toileting. OBJECTIVE: Vital Signs 3 Period Temp Pulse Resp BP Sys/Cordero Pulse Ox Last 24 Hr 97.8 F-98.5 F 53-81 14-18 102-130/56-77 98-100 GENERAL: The patient is awake, alert, and fully oriented, in no acute distress. LUNGS: Breath sounds equal, clear to auscultation bilaterally, no wheezes, no crackles, no accessory muscle use. HEART: Regular rate and rhythm, S1, S2 without murmur, rub or gallop. ABDOMEN: Soft, nontender, nondistended, normoactive bowel sounds, no guarding, no rebound, no hepatosplenomegaly, no masses. Surgical incisions noted to LLQ, umbilicus and directly below umbilicus at bikini line. No drainage. Ecchymosis to umbilicus. EXTREMITIES: 2+ pulses, warm, well-perfused, no edema. NEUROLOGICAL: Cranial nerves II through XII grossly intact. Normal speech, gait not observed. PSYCH: Normal mood, normal affect. SKIN: Warm, dry, normal turgor, no rashes or lesions noted. Surgical incisions noted to LLQ, umbilicus and directly below umbilicus at bikini line. No drainage. Ecchymosis to umbilicus. Laboratory Results - last 24 hr 3 02/12/17 02/12/17 06:00 06:00 WBC 11.1 H RBC 3.91 Hgb 11.2 Hct 33.8 MCV 86.4 MCHC 33.2 RDW 14.1 Plt Count 271 MPV 8.3 Neutrophils % 77.4 Lymphocytes % 15.6 Monocytes % 6.7 Eosinophils % 0.1 D Basophils % 0.2 Sodium 139 Potassium 3.9 Chloride 106 Carbon Dioxide 25 Anion Gap 8 BUN 7 Creatinine 0.6 Random Glucose 105 Calcium 8.0 L Active Medications 3 Generic Name Dose Route Start Last Admin Trade Name Freq PRN Reason Stop Dose Admin Acetaminophen 325 mg 02/11/17 19:49 02/12/17 06:30 Tylenol - PO 325 mg Q6H PRN Administration PAIN Fentanyl 50 mcg 02/11/17 12:35 Sublimaze Injection - IVPUSH 02/14/17 12:36 [id number] PRN PAIN Heparin Sodium (Porcine) 5,000 unit 02/11/17 22:00 02/11/17 21:15 Heparin - SQ 5,000 unit BID TONY Administration Metronidazole 100 mls @ 100 mls/hr 02/11/17 18:00 02/12/17 01:20 Flagyl 500mg Premixed Ivpb - IVPB 100 mls/hr Q8H-IV TONY Administration Levofloxacin 100 mls @ 100 mls/hr 02/12/17 10:00 Levaquin 500 Mg Premixed Ivpb - IVPB DAILY TONY Sodium Chloride 1,000 mls @ 125 mls/hr 02/11/17 11:47 02/11/17 13:15 Normal Saline - IV 125 mls/hr ASDIR TONY Administration Piperacillin Sod/Tazobactam Sod 50 mls @ 100 mls/hr 02/11/17 18:00 02/12/17 01: 45 Zosyn 3.375gm Ivpb (Pre-Docked) IVPB 100 mls/hr Q8H-IV TONY Administration Protocol Oxycodone HCl 5 mg 02/11/17 19:53 02/12/17 06:29 Roxicodone - PO 02/12/17 19:52 5 mg Q6H PRN Administration Trimethobenzamide HCl 200 mg 02/11/17 11:28 Tigan Injection - IM Q8H PRN NAUSEA ASSESSMENT/PLAN: A: 26 yo woman s/p lap appy. Spontaneous voiding post-op. Mild nausea overnight relieved with medications. P: 1. Appendectomy POD#1 - Zosyn 3.375g q8h - Flagyl 500mg q8h - Levaquin 500mg daily - WBC 15.9->10.9->11.1 - appreciate ID recs - Oxycodone and APAP for pain - Tigan for nausea - Encourage incentive spirometer - Encourage coughing and deep breathing - OOB 2. Appendicitis - see above 3. F/E/N - Advance diet to regular - replete prn 4. PPX - OOB - heparin Dispo- requires continued inpatient evaluation of acute medical condition Code Status- FULL CODE Visit type - Emergency Visit Emergency Visit: Yes ED Registration Date: 02/10/17 Care time: The patient presented to the Emergency Department on the above date and was hospitalized for further evaluation of their emergent condition. - New Patient This patient is new to me today: Yes Date on this admission: 02/12/17 - Critical Care Critical Care patient: No
[2017-02-12] MEDS: LEVOFLOXACIN 500 MG IVPB 100 ML IVPB SCH (11:15)
--- NOTE | 2017-02-12 13:42 | PATH ---
Surgical Pathology Report Patient Name: GILBERT SULLIVAN [facility]. Rec. #: [id number] /Age/Gender: 1990 (Age: 26) / F Account: [id number] Location: [address] [place] [address]/[facility] Taken: 02/11/2017 Received: 02/11/2017 Reported: 02/12/2017 Physicians: Cynthia Dodge M.D. Specimen(s) Received APPENDIX Clinical History Acute appendicitis Final Diagnosis APPENDIX, APPENDECTOMY: ACUTE HEMORRHAGIC APPENDICITIS AND PERIAPPENDICITIS. Electronically Signed John Hartmann M.D. Gross Description Received in formalin, labeled "appendix" is a 6 cm in length vermiform appendix with a stapled margin of resection and moderate attached fat. The serosa is munoz-pink with attached exudate. Sectioning reveals a focally dilated, hemorrhagic lumen. The wall of the appendix averages 0.2 cm in thickness. Bias Machine Operator sections are submitted in one cassette. 02/11/2017 [facility]02/11/2017
[2017-02-12] MEDS: SODIUM CHLORIDE 1,000 ML IV SCH (14:12)
--- NOTE | 2017-02-12 15:12 | PN ---
Progress Note, Physician History of Present Illness: patient starting to feel better abd pain still present - Current Medication List Current Medications: Active Medications Acetaminophen (Tylenol -) 325 mg PO Q6H PRN PRN Reason: PAIN Last Admin: 02/12/17 13:06 Dose: 325 mg Fentanyl (Sublimaze Injection -) 50 mcg IVPUSH [id number] PRN PRN Reason: PAIN Stop: 02/14/17 12:36 Heparin Sodium (Porcine) (Heparin -) 5,000 unit SQ BID TONY Last Admin: 02/12/17 10:20 Dose: 5,000 unit Metronidazole (Flagyl 500mg Premixed Ivpb -) 100 mls @ 100 mls/hr IVPB Q8H-IV TONY Last Admin: 02/12/17 10:20 Dose: 100 mls/hr Levofloxacin (Levaquin 500 Mg Premixed Ivpb -) 100 mls @ 100 mls/hr IVPB DAILY [facility] Last Admin: 02/12/17 11:15 Dose: 100 mls/hr Sodium Chloride (Normal Saline -) 1,000 mls @ 125 mls/hr IV ASDIR TONY Last Admin: 02/12/17 14:12 Dose: 125 mls/hr Piperacillin Sod/Tazobactam Sod (Zosyn 3.375gm Ivpb (Pre-Docked)) 50 mls @ 100 mls/hr IVPB Q8H-IV TONY PRN Reason: Protocol Last Admin: 02/12/17 12:59 Dose: 100 mls/hr Oxycodone HCl (Roxicodone -) 5 mg PO Q6H PRN Stop: 02/12/17 19:52 Last Admin: 02/12/17 13:14 Dose: 5 mg Trimethobenzamide HCl (Tigan Injection -) 200 mg IM Q8H PRN PRN Reason: NAUSEA - Objective Vital Signs: Vital Signs Temperature 98.2 F 02/12/17 14:00 Pulse Rate 56 L 02/12/17 14:00 Respiratory Rate 02/12/17 14:00 Blood Pressure 122/71 02/12/17 05:52 O2 Sat by Pulse Oximetry (%) 98 02/11/17 21:00 Constitutional: Yes: Calm, Mild Distress Cardiovascular: Yes: Regular Rate and Rhythm Respiratory: Yes: Regular, CTA Bilaterally Gastrointestinal: Yes: Soft, Tenderness Musculoskeletal: Yes: WNL Extremities: Yes: WNL Wound/Incision: Yes: Clean/Dry Neurological: Yes: Alert, Oriented Psychiatric: Yes: Alert Labs: CBC, BMP 02/12/17 06:00 02/12/17 06:00 INR, PTT INR 1.30 (0.82-1.09) H 02/10/17 23:05 Assessment/Plan perforated appendicitis obesity peritonitis plan continue abx wbc trending down rest as per primary
[2017-02-13] MEDS: PIPERACILLIN/TAZOB 3.375 GM 50 ML IVPB SCH ×3 (01:44→17:40)
[2017-02-13] MEDS: METRONIDAZOLE 500 MG PREMIXED 100 ML IVPB SCH ×3 (01:44→17:36)
[2017-02-13] MEDS: ACETAMINOPHEN 325 MG TABLET (FP) PO PRN ×3 (05:03→23:04)
[2017-02-13] MEDS: oxyCODONE HCL 5 MG TABLET PO PRN ×3 (05:03→23:03)
[2017-02-13 06:55] LABS: BASOPHIL 0.5 % (0-2.0); MCH 28.3 pg (25.7-33.7); MCHC 32.7 g/dl (32.0-36.0); MEAN CELL VOLUME 86.4 fl (80-96); MEAN PLT VOLUME 8.7 fl (7.5-11.1); NEUTROPHILS 56.1 % (42.8-82.8); PLATELET COUNT 294 K/MM3 (134-434); RDW 14.3 % (11.6-15.6); WHITE BLOOD COUNT 8.4 K/mm3 (4.0-10.0)
[2017-02-13 07:06] LABS: ALBUMIN 2.7 g/dl (3.4-5.0); ANION GAP 9 (8-16); BILIRUBIN,TOTAL 0.3 mg/dL (0.2-1.0); CALCIUM 7.8 mg/dL (8.5-10.1); CO2 25 mmol/L (21-32); CREATININE 0.7 mg/dL (0.55-1.02); GLUCOSE,RANDOM 87 mg/dL (74-106); SGOT/AST 27 U/L (15-37); SGPT/ALT 46 U/L (12-78); TOT PROT 5.3 g/dl (6.4-8.2)
[2017-02-13 07:07] LABS: ALK PHOS 76 U/L (45-117)
[2017-02-13] MEDS: LEVOFLOXACIN 500 MG IVPB 100 ML IVPB SCH (09:29)
[2017-02-13] MEDS: HEPARIN NA (PORCINE) 5,000 UNITS/ML 1ML VIAL SQ SCH ×2 (09:30→22:13)
--- NOTE | 2017-02-13 12:29 | PN ---
Progress Note, Physician History of Present Illness: stable no complaints has tolerated soft diet - Current Medication List Current Medications: Active Medications Acetaminophen (Tylenol -) 325 mg PO Q6H PRN PRN Reason: PAIN Last Admin: 02/13/17 11:03 Dose: 325 mg Fentanyl (Sublimaze Injection -) 50 mcg IVPUSH [id number] PRN PRN Reason: PAIN Stop: 02/14/17 12:36 Heparin Sodium (Porcine) (Heparin -) 5,000 unit SQ BID TONY Last Admin: 02/13/17 09:30 Dose: 5,000 unit Metronidazole (Flagyl 500mg Premixed Ivpb -) 100 mls @ 100 mls/hr IVPB Q8H-IV TONY Last Admin: 02/13/17 09:30 Dose: 100 mls/hr Levofloxacin (Levaquin 500 Mg Premixed Ivpb -) 100 mls @ 100 mls/hr IVPB DAILY [facility] Last Admin: 02/13/17 09:29 Dose: 100 mls/hr Sodium Chloride (Normal Saline -) 1,000 mls @ 125 mls/hr IV ASDIR TONY Last Admin: 02/12/17 14:12 Dose: 125 mls/hr Piperacillin Sod/Tazobactam Sod (Zosyn 3.375gm Ivpb (Pre-Docked)) 50 mls @ 100 mls/hr IVPB Q8H-IV TONY PRN Reason: Protocol Last Admin: 02/13/17 09:29 Dose: 100 mls/hr Oxycodone HCl (Roxicodone -) 5 mg PO Q6H PRN Last Admin: 02/13/17 11:04 Dose: 5 mg Trimethobenzamide HCl (Tigan Injection -) 200 mg IM Q8H PRN PRN Reason: NAUSEA - Objective Vital Signs: Vital Signs Temperature 98.2 F 02/13/17 03:27 Pulse Rate 67 02/13/17 10:00 Respiratory Rate 18 02/13/17 10:00 Blood Pressure 122/71 02/13/17 10:00 O2 Sat by Pulse Oximetry (%) 98 02/12/17 21:00 Constitutional: Yes: No Distress, Calm Cardiovascular: Yes: Regular Rate and Rhythm Respiratory: Yes: Regular, CTA Bilaterally Gastrointestinal: Yes: Normal Bowel Sounds, Soft Musculoskeletal: Yes: WNL Extremities: Yes: WNL Neurological: Yes: Alert, Oriented Psychiatric: Yes: Alert, Oriented Labs: CBC, BMP 02/13/17 05:45 02/13/17 05:45 INR, PTT INR 1.30 (0.82-1.09) H 02/10/17 23:05 Assessment/Plan perforated appendicitis obesity peritonitis plan continue abx wbc normal stop abx tomorrow rest as per primary
[2017-02-13] MEDS: SODIUM CHLORIDE 1,000 ML IV SCH (17:40)
[2017-02-13] MEDS: TRIMETHOBENZAMIDE HCL 200MG/2ML INJ IM PRN (17:40)
--- NOTE | 2017-02-13 21:15 | PN ---
Progress Note, Physician - Current Medication List Current Medications: Active Medications Acetaminophen (Tylenol -) 325 mg PO Q6H PRN PRN Reason: PAIN Last Admin: 02/13/17 11:03 Dose: 325 mg Fentanyl (Sublimaze Injection -) 50 mcg IVPUSH [id number] PRN PRN Reason: PAIN Stop: 02/14/17 12:36 Heparin Sodium (Porcine) (Heparin -) 5,000 unit SQ BID TONY Last Admin: 02/13/17 09:30 Dose: 5,000 unit Metronidazole (Flagyl 500mg Premixed Ivpb -) 100 mls @ 100 mls/hr IVPB Q8H-IV TONY Last Admin: 02/13/17 17:36 Dose: 100 mls/hr Levofloxacin (Levaquin 500 Mg Premixed Ivpb -) 100 mls @ 100 mls/hr IVPB DAILY [facility] Last Admin: 02/13/17 09:29 Dose: 100 mls/hr Sodium Chloride (Normal Saline -) 1,000 mls @ 125 mls/hr IV ASDIR TONY Last Admin: 02/13/17 17:40 Dose: 125 mls/hr Piperacillin Sod/Tazobactam Sod (Zosyn 3.375gm Ivpb (Pre-Docked)) 50 mls @ 100 mls/hr IVPB Q8H-IV TONY PRN Reason: Protocol Last Admin: 02/13/17 17:40 Dose: 100 mls/hr Oxycodone HCl (Roxicodone -) 5 mg PO Q6H PRN Last Admin: 02/13/17 11:04 Dose: 5 mg Trimethobenzamide HCl (Tigan Injection -) 200 mg IM Q8H PRN PRN Reason: NAUSEA Last Admin: 02/13/17 17:40 Dose: 200 mg - Objective Vital Signs: Vital Signs Temperature 98.7 F 02/13/17 18:08 Pulse Rate 64 02/13/17 18:08 Respiratory Rate 18 02/13/17 18:08 Blood Pressure 120/77 02/13/17 18:08 O2 Sat by Pulse Oximetry (%) 98 02/12/17 21:00 Labs: CBC, BMP 02/13/17 05:45 02/13/17 05:45 INR, PTT INR 1.30 (0.82-1.09) H 02/10/17 23:05 Problem List - Problems (1) Acute appendicitis Code(s): K35.80 - UNSPECIFIED ACUTE APPENDICITIS Qualifiers: Acute appendicitis type: with localized peritonitis Qualified Code(s ): K35.3 - Acute appendicitis with localized peritonitis
[2017-02-14] MEDS ORDERED: PT OWN MED DRAWER 7, Y5N ONE (01:39)
[2017-02-14] MEDS: METRONIDAZOLE 500 MG PREMIXED 100 ML IVPB SCH (02:03)
[2017-02-14] MEDS: TRIMETHOBENZAMIDE HCL 200MG/2ML INJ IM PRN (02:03)
[2017-02-14] MEDS: PIPERACILLIN/TAZOB 3.375 GM 50 ML IVPB SCH (02:40)
[2017-02-14] MEDS ORDERED: AMOX TR/POT CLAV 875MG/125MG TABLETS (FP) PO SCH (10:30)
--- NOTE | 2017-02-14 13:53 | PN ---
Progress Note, Physician History of Present Illness: patient stable no issues tolerated diet well wounds are doing well - Current Medication List Current Medications: Active Medications Acetaminophen (Tylenol -) 325 mg PO Q6H PRN PRN Reason: PAIN Last Admin: 02/13/17 23:04 Dose: 325 mg Amoxicillin/Clavulanate Potassium (Augmentin - 875mg Tablet) 1 tab PO BID [facility] Last Admin: 02/14/17 10:30 Dose: 1 tab Heparin Sodium (Porcine) (Heparin -) 5,000 unit SQ BID [facility] Last Admin: 02/13/17 22:13 Dose: 5,000 unit Sodium Chloride (Normal Saline -) 1,000 mls @ 125 mls/hr IV ASDIR [facility] Last Admin: 02/13/17 17:40 Dose: 125 mls/hr Oxycodone HCl (Roxicodone -) 5 mg PO Q6H PRN Last Admin: 02/13/17 23:03 Dose: 5 mg Trimethobenzamide HCl (Tigan Injection -) 200 mg IM Q8H PRN PRN Reason: NAUSEA Last Admin: 02/14/17 02:03 Dose: 200 mg - Objective Vital Signs: Vital Signs Temperature 98 F 02/14/17 05:47 Pulse Rate 81 02/14/17 10:00 Respiratory Rate 20 02/14/17 10:00 Blood Pressure 156/86 02/14/17 10:00 O2 Sat by Pulse Oximetry (%) 98 02/14/17 09:00 Constitutional: Yes: No Distress, Calm Cardiovascular: Yes: Regular Rate and Rhythm Respiratory: Yes: Regular, CTA Bilaterally Gastrointestinal: Yes: Normal Bowel Sounds, Soft Musculoskeletal: Yes: WNL Extremities: Yes: WNL Neurological: Yes: Alert, Oriented Psychiatric: Yes: Alert Labs: CBC, BMP 02/13/17 05:45 02/13/17 05:45 INR, PTT INR 1.30 (0.82-1.09) H 02/10/17 23:05 Assessment/Plan perforated appendicitis obesity peritonitis plan patients cx result noted will give patien ceftin for 3 more days
[2017-02-14 14:12] VITALS: BP 137/89; PULSE 67; TEMP 98.8
[2017-02-14] MEDS ORDERED: CEFUROXIME AXETIL 500 MG TABLET PO ONE (14:15)
[2017-02-14] MEDS ORDERED: CEFUROXIME AXETIL 500 MG TABLET PO SCH (22:00)
== END 2017-02-14 14:23 | disposition home or self-care (01) | DRG 225 ==
LOC: JER 12:15 → JERBED 21:48 → J6S 02-11 00:31
PROVIDERS: ADMIT Internal Medicine; ATTEND Internal Medicine
PROC: 0DTJ4ZZ Resection of Appendix, Percutaneous Endoscopic Approach (ICD-10-PCS; principal; 2017-02-11 10:00)
DX: K35.3 Acute appendicitis with localized peritonitis (principal); E66.9 Obesity, unspecified; Z68.39 Body mass index [BMI] 39.0-39.9, adult
CPT/HCPCS: 36415; 70450-TC; 74177-TC; 80048; 80053; 81003; 81015; 83615; 83690; 84550; 84703; 85025; 85379; 85610; 86850; 86900; 86901; 87070; 87075; 87186; 87205; 88304-TC; 94760; 99284-25; J1644; Q9967

== ENCOUNTER 2017-10-25 04:09 | Emergency (ER) | payer OTHER ==
--- NOTE | 2017-10-25 04:28 | PDOC ---
History of Present Illness <Catie Waggoner - Last Filed: 10/25/17 06:42> - General History Source: Patient Exam Limitations: No Limitations - History of Present Illness Initial Comments: 10/25/17 06:53 Patient is a 27 year old female with a significant past medical history of pituitary adenoma who presents to the ED with complaints of diffuse chest pain that began this morning at 3 am. Patient reports waking up this morning with gradual chest pain stating that pain was intense enough to make her feel as if she was going to vomit and lose consciousness, prompting her to come into the ED for further evaluation. She reports chest pain is a burning pain that feels similar heartburn she experienced during her but states it is much more intense. Patient reports experiencing associated epigastric pain. She reports taking apple cider vinegar cleansing drinks during the day and at night but states the last treatment she took was 2 days ago. Patient reports being prescribed medication for her pituitary adenoma but states she has not be taking her medication since the start of her . Denies nausea, vomiting. Denies fevers chills. Denies contact with sick individuals, out of state travelling. Denies constipation, diarrhea, dysuria, hematuria. Denies any other symptoms. Allergies: None Social history: Lives with and child. No smoking. No alcohol. No illicit drugs. Surgical history: . Appendectomy. Cyst endometriosis. PMD: Dr. Dieter Allen <Rell Calhoun - Last Filed: 10/25/17 06:53> - General Stated Complaint: HEARTBURN Time Seen by Provider: 10/25/17 04:27 Past History - Reproductive History (#): 0 Para: 0 - Immunization History Td Vaccination: No TDAP Vaccination: No Immunization Up to Date: Yes - Suicide/Smoking/Psychosocial Hx Smoking Status: No Smoking History: Never smoked Have you smoked in the past 12 months: No Number of Cigarettes Smoked Daily: 0 Hx Alcohol Use: Yes (SOCIAL) Drug/Substance Use Hx: No Substance Use Type: None <Catie Waggoner - Last Filed: 10/25/17 06:42> <Rell Calhoun - Last Filed: 10/25/17 06:53> - Past Medical History Allergies/Adverse Reactions: Allergies Allergy/AdvReac Type Severity Reaction Status Date / Time No Known Allergies Allergy Verified 10/25/17 04:28 Home Medications: Ambulatory Orders NK [No Known Home Medication] 10/25/17 Review of Systems - Review of Systems Able to Perform ROS?: Yes Comments:: 10/25/17 06:53 GENERAL/CONSTITUTIONAL: No fever or chills. No weakness. HEAD, EYES, EARS, NOSE AND THROAT: No change in vision. No ear pain or discharge. No sore throat. CARDIOVASCULAR: +Chest pain. No shortness of breath. RESPIRATORY: No cough, wheezing, or hemoptysis. GASTROINTESTINAL: +Epigastric pain. No nausea, vomiting, diarrhea or constipation. GENITOURINARY: No dysuria, frequency, or change in urination. MUSCULOSKELETAL: No joint or muscle swelling or pain. No neck or back pain. SKIN: No rash NEUROLOGIC: No headache, vertigo, loss of consciousness, or change in strength/ sensation. ENDOCRINE: No increased thirst. No abnormal weight change. HEMATOLOGIC/LYMPHATIC: No anemia, easy bleeding, or history of blood clots. ALLERGIC/IMMUNOLOGIC: No hives or skin allergy. <Rell Calhoun - Last Filed: 10/25/17 06:53> *Physical Exam - Vital Signs Last Vital Signs Temp Pulse Resp BP Pulse Ox 97.6 F 70 20 151/96 99 10/25/17 04:28 10/25/17 04:28 10/25/17 04:28 10/25/17 04:28 10/25/17 04:28 - Physical Exam Comments: 10/25/17 06:53 GENERAL: Awake, alert, and fully oriented, in no acute distress HEAD: No signs of trauma EYES: PERRLA, EOMI, sclera anicteric, conjunctiva clear ENT: Auricles normal inspection, hearing grossly normal, nares patent, oropharynx clear without exudates. Moist mucosa NECK: Normal ROM, supple, no lymphadenopathy, JVD, or masses LUNGS: Breath sounds equal, clear to auscultation bilaterally. No wheezes, and no crackles HEART: Regular rate and rhythm, normal S1 and S2, no murmurs, rubs or gallops ABDOMEN: +Epigastric tenderness. +Right upper quadrants Herron's signs. Soft, nontender, normoactive bowel sounds. No guarding, no rebound. No masses EXTREMITIES: Normal range of motion, no edema. No clubbing or cyanosis. No cords, erythema, or tenderness NEUROLOGICAL: Cranial nerves II through XII grossly intact. Normal speech, normal gait SKIN: Warm, Dry, normal turgor, no rashes or lesions noted. <Rell Calhoun - Last Filed: 10/25/17 06:53> ED Treatment Course - LABORATORY CBC & Chemistry Diagram: 10/25/17 05:03 10/25/17 05:03 <Catie Waggoner - Last Filed: 10/25/17 06:42> - LABORATORY CBC & Chemistry Diagram: 10/25/17 05:03 10/25/17 05:03 - ADDITIONAL ORDERS Additional order review: Laboratory Results 10/25/17 10/25/17 05:03 05:03 Sodium 138 Potassium 4.9 Chloride 101 Carbon Dioxide 28 Anion Gap 9 BUN 17 Creatinine 0.7 Creat Clearance w eGFR > 60 Random Glucose 110 H Calcium 9.6 Total Bilirubin 0.2 D AST 16 ALT 18 Alkaline Phosphatase 123 H Total Protein 7.9 Albumin 3.9 Total Amylase 47 Lipase 156 10/25/17 05:03 RBC 4.90 D MCV 81.2 MCHC 33.1 RDW 15.0 MPV 9.1 Neutrophils % 71.1 D Lymphocytes % 20.4 D Monocytes % 7.4 Eosinophils % 0.8 Basophils % 0.3 - Medications Given in the ED: ED Medications Discontinued Medications Generic Name Dose Route Start Last Admin Trade Name Juan Ramonq PRN Reason Stop Dose Admin Al Hydroxide/Mg Hydroxide 30 ml 10/25/17 04:50 10/25/17 05:15 Mylanta Oral Suspension - PO 10/25/17 04:51 30 ml ONCE ONE Administration Famotidine/Sodium Chloride 20 mg in 50 mls @ 100 mls/hr 10/25/17 04:50 05:15 Pepcid 20 Mg Premixed Ivpb - IVPB 10/25/17 05:19 100 mls/hr ONCE ONE Administration <Rell Calhoun - Last Filed: 10/25/17 06:53> Medical Decision Making - Medical Decision Making 10/25/17 05:21 Pt has epigastric pain. SHe has been trying to lose her weight. She had been drinking apple cider vinegar BID x 2 weeks. But she stopped last week. Then she drank it again 2 days ago, She started a 7 day cleanse last night. Pt insists that she is not starving herself. She says that she took 4 TUMS before coming to the ER, but it didnt help. Pt was awake this AM with her 9 month old baby and then she noted that she had epigastric pain and she decided to come to the ER. 10/25/17 06:42 Pt will be signed out to day team. Luano pending when sono department opens. <Catie Waggoner - Last Filed: 10/25/17 06:42> *DC/Admit/Observation/Transfer <Catie Waggoner - Last Filed: 10/25/17 06:42> - Attestations Scribe Attestion: 10/25/17 06:53 Documentation prepared by Rell Calhoun, acting as medical administrative technician for Catie Waggoner MD/DO. <Rell Calhoun - Last Filed: 10/25/17 06:53> - Referrals Referrals: Dieter Allen MD [Primary Care Provider] - - Patient Instructions - Post Discharge Activity
[2017-10-25 04:30] VITALS: BMI 30.7
[2017-10-25] MEDS ORDERED: MAG HYDROX/AL HYDROX/SIMETH 30 ML UNIT-DOSE CUP PO ONE (04:50)
[2017-10-25] MEDS ORDERED: FAMOTIDINE 20 MG/50 ML IVPB 20 MG/50 ML MG IVPB ONE ×2 (04:50→05:06)
[2017-10-25] MEDS ORDERED: MAG HYDROX/AL HYDROX/SIMETH 30 ML UNIT-DOSE CUP ONE (05:06)
[2017-10-25 05:11] LABS: BASO % 0.3 % (0-2.0); EOS % 0.8 % (0-4.5); HEMATOCRIT 39.8 % (32.4-45.2); HEMOGLOBIN 13.2 GM/dL (10.7-15.3); LYMPH % 20.4 % (8-40); MCH 26.9 pg (25.7-33.7); MCHC 33.1 g/dl (32.0-36.0); MEAN CELL VOLUME 81.2 fl (80-96); MEAN PLT VOLUME 9.1 fl (7.5-11.1); MONO % 7.4 % (3.8-10.2); NEUT % 71.1 % (42.8-82.8); PLATELET COUNT 246 K/MM3 (134-434); WHITE BLOOD COUNT 8.9 K/mm3 (4.0-10.0)
[2017-10-25 05:36] LABS: ALBUMIN 3.9 g/dl (3.4-5.0); ANION GAP 9 (8-16); BILIRUBIN,TOTAL 0.2 mg/dL (0.2-1.0); BLOOD UREA NITROGEN 17 mg/dL (7-18); CALCIUM 9.6 mg/dL (8.5-10.1); CHLORIDE 101 mmol/L (98-107); CO2 28 mmol/L (21-32); CREATININE 0.7 mg/dL (0.55-1.02); GLUCOSE,RANDOM 110 mg/dL (74-106); LIPASE 156 U/L (73-393); SGPT/ALT 18 U/L (12-78); SODIUM 138 mmol/L (136-145); TOT PROT 7.9 g/dl (6.4-8.2)
[2017-10-25 05:37] LABS: ALK PHOS 123 U/L (45-117)
[2017-10-25 05:39] LABS: POTASSIUM 4.9 mmol/L (3.5-5.1); SGOT/AST 16 U/L (15-37)
--- NOTE | 2017-10-25 11:31 | PDOC ---
*Physical Exam - Vital Signs Last Vital Signs Temp Pulse Resp BP Pulse Ox 98.4 F 76 14 126/86 98 10/25/17 07:05 10/25/17 07:05 10/25/17 07:05 10/25/17 07:05 10/25/17 07:05 - Physical Exam Cardiovascular: positive: Regular Rhythm, Regular Rate Gastrointestinal/Abdominal: positive: Normal Bowel Sounds, Tender, Flat, Soft ED Treatment Course - LABORATORY CBC & Chemistry Diagram: 10/25/17 05:03 10/25/17 05:03 - ADDITIONAL ORDERS Additional order review: Laboratory Results 10/25/17 10/25/17 05:03 05:03 Sodium 138 Potassium 4.9 Chloride 101 Carbon Dioxide 28 Anion Gap 9 BUN 17 Creatinine 0.7 Creat Clearance w eGFR > 60 Random Glucose 110 H Calcium 9.6 Total Bilirubin 0.2 D AST 16 ALT 18 Alkaline Phosphatase 123 H Total Protein 7.9 Albumin 3.9 Total Amylase 47 Lipase 156 10/25/17 05:03 RBC 4.90 D MCV 81.2 MCHC 33.1 RDW 15.0 MPV 9.1 Neutrophils % 71.1 D Lymphocytes % 20.4 D Monocytes % 7.4 Eosinophils % 0.8 Basophils % 0.3 - Medications Given in the ED: ED Medications Discontinued Medications Generic Name Dose Route Start Last Admin Trade Name Jose PRN Reason Stop Dose Admin Al Hydroxide/Mg Hydroxide 30 ml 10/25/17 04:50 10/25/17 05:15 Mylanta Oral Suspension - PO 10/25/17 04:51 30 ml ONCE ONE Administration Famotidine/Sodium Chloride 20 mg in 50 mls @ 100 mls/hr 10/25/17 04:50 05:15 Pepcid 20 Mg Premixed Ivpb - IVPB 10/25/17 05:19 100 mls/hr ONCE ONE Administration Medical Decision Making - Medical Decision Making 10/25/17 11:31Patient with right upper quadrant pain asked to follow-up ultrasound Ultrasound with evidence of gallstones but no evidence of cholecystitis patient feels better repeat abdominal evaluation with no rebound no guarding Very strict cholecystitis return instructions discussed with patient Patient provided with surgery outpatient follow-up Findings, the need for follow-up and strict return instructions discussed with patient. *DC/Admit/Observation/Transfer Diagnosis at time of Disposition: Gallstones - Discharge Dispostion Admit: No - Referrals Referrals: Dieter Allen MD [Primary Care Provider] - Cal Fitzpatrick MD [Staff Physician] - - Patient Instructions Printed Discharge Instructions: Gallstones Additional Instructions: Drink plenty of fluids. Avoid fatty food. Follow-up with Dr. Fitzpatrick surgery this week. Return to the emergency department immediately for any fever severe pain or for any concerns. - Post Discharge Activity
[2017-10-25 12:21] VITALS: BP 123/77; PULSE 71; TEMP 98
== END 2017-10-25 11:55 | disposition home or self-care (01) ==
LOC: JER 04:09
PROC: 3E033GC Introduction of Other Therapeutic Substance into Peripheral Vein, Percutaneous Approach (ICD-10-PCS; principal; 2017-10-25)
DX: K80.20 Calculus of gallbladder without cholecystitis without obstruction (principal)
CPT/HCPCS: 36415; 76705-TC; 80053; 82150; 83690; 85025; 99282-25

== ENCOUNTER 2019-03-10 04:42 | Day surgery (SDC) | payer OTHER ==
[2019-03-09 10:52] VITALS: BMI 34.7
[2019-03-10] MEDS ORDERED: BUPIVACAINE HCL/PF 0.5% (5MG/ML) 10 ML VIAL ONE (07:10)
[2019-03-10] MEDS ORDERED: ROCURONIUM BROMIDE 50 MG/5 ML SYRINGE ONE (07:27)
[2019-03-10] MEDS ORDERED: PROPOFOL 20 ML ONE ×2 (07:28→08:25)
[2019-03-10] MEDS ORDERED: SUCCINYLCHOLINE CHLORIDE 200 MG/10 ML SYRINGE ONE (07:28)
[2019-03-10] MEDS ORDERED: MIDAZOLAM HCL 2 MG/2 ML SINGLE DOSE VIAL ONE (07:28)
[2019-03-10] MEDS ORDERED: KETAMINE HCL 200 MG/20 ML VIAL ONE (07:28)
[2019-03-10] MEDS ORDERED: SODIUM CHLORIDE 0.9% P/F 10 ML VIAL IJ ONE ×2 (07:34→07:59)
[2019-03-10] MEDS ORDERED: DEXAMETHASONE SOD PHOSPHATE 4 MG/1 ML VIAL ONE ×3 (07:34→08:38)
[2019-03-10] MEDS ORDERED: LIDOCAINE HCL/PF 2% SDV 5ML VIAL ONE ×2 (07:34→07:35)
[2019-03-10] MEDS ORDERED: ceFAZolin SODIUM 1 GM VIAL ONE (07:34)
[2019-03-10] MEDS ORDERED: KETOROLAC TROMETHAMINE 30 MG/1 ML VIAL ONE (07:34)
[2019-03-10] MEDS ORDERED: DEXMEDETOMIDINE HCL 200 MCG/2 ML IVPB ONE (07:50)
[2019-03-10] MEDS ORDERED: ceFAZolin SODIUM 1 GM VIAL IVPB ONE (08:26)
[2019-03-10] MEDS ORDERED: BUPIVACAINE HCL/PF 0.5% (5 MG/ML) 30 ML VIAL IJ ONE (08:38)
[2019-03-10] MEDS ORDERED: NEOSTIGMINE METHYLSULFATE 0.5 MG/ML - 10 ML MDV ONE (08:55)
[2019-03-10] MEDS ORDERED: GLYCOPYRROLATE 0.2 MG/1 ML VIAL ONE (08:55)
--- NOTE | 2019-03-10 09:31 | HP ---
History & Physical Update - History History: No Change - Physical Physical: No Change - Assessment Assessment: No Change - Plan Plan: No Change
--- NOTE | 2019-03-10 09:33 | OP ---
Operative Note - Note: Operative Date: 03/10/19 Pre-Operative Diagnosis: Chronic cholecystitis with cholelithiasis Operation: Laparoscopic cholecystectomy Findings: GB with multiple stones Post-Operative Diagnosis: Same as Pre-op Surgeon: Karel Shelley Director Of Financial Reporting: Paul Renteria Anesthesia: General Specimens Removed: gallbladder Estimated Blood Loss (mls): 3 Operative Report Dictated: Yes
--- NOTE | 2019-03-10 09:48 | SURG ---
Surgery Parachute/Combatant Diver Officer Note Parachute/Combatant Diver Officer: Paul Renteria PA-C Date of Service: 03/10/19 Diagnosis: Chronic cholecystitis with cholelithiasis Procedure: Laparoscopic cholecystectomy I was present for the entirety of the operative procedure. For further detail, please refer to operative report. Visit type - Case Type Case Type: Scheduled - Emergency Emergency Visit: No - New patient This patient is new to me today: Yes Date on this admission: 03/10/19 - Critical Care Critical Care patient: No
--- NOTE | 2019-03-10 09:52 | OP ---
DATE OF OPERATION: 03/10/2019 PROCEDURE: Laparoscopic cholecystectomy. PREOPERATIVE DIAGNOSIS: Chronic cholecystitis with cholelithiasis. POSTOPERATIVE DIAGNOSIS: Chronic cholecystitis with cholelithiasis. SURGEON: Karel Shelley MD SENSORY SCIENTIST: Paul Renteria PA-C ANESTHESIA: General endotracheal. FINDINGS ON PROCEDURE: This is a 28-year-old female who presents with chronic right upper quadrant pain radiating to the back aggravated by fatty meals. A preoperative ultrasound revealed gallbladder with multiple stones. So, patient was advised elective cholecystectomy, and consent was obtained after discussing the risks, benefits, and alternatives of the procedure. DESCRIPTION OF PROCEDURE: Patient was brought to the operating room and placed in supine position. General endotracheal anesthesia was administered. The abdomen was prepped and draped in the usual sterile fashion. Using 0.5% Marcaine, local anesthesia was administered to the proposed incision sites. The peritoneal cavity was entered using the Optiview technique via a 5-mm umbilical incision using a 5-mm 30-degree scope inserted in a 5-mm optical port. Pneumoperitoneum was established. The peritoneal cavity was carefully inspected , and it was noted to be free of inadvertent injury. The patient was then placed in reverse Trendelenburg [id number] position. A 12-mm port was inserted at the subxiphoid region and two 5-mm ports were inserted at the right subcostal region at the midclavicular and anterior axillary lines under direct vision. The gallbladder was noted to be mildly distended. The fundus was grasped and retracted superiorly, and the infundibulum was grasped and retracted inferolaterally to expose the triangle of Calot. The visceral peritoneum covering the triangle was scored using the hook dissector connected to monopolar cautery. Careful dissection of the cystic duct and the anterior and posterior branches of the cystic artery was done, and the proximal gallbladder was dissected away from the liver bed to create a window to create the critical view of safety. The cystic duct, the anterior and posterior branches of the cystic artery were clipped at 3 points followed by transection leaving 2 clips at the cystic duct and cystic artery stumps. The gallbladder was resected from its bed in antegrade fashion using the hook dissector connected to monopolar cautery. A small amount of blood was evacuated using the Raytec gauze. The gallbladder was placed in the Endobag and extracted via the subxiphoid incision, which was lengthened about 2 mm more to accommodate 2 medium sized gallstones. Afterwards, the pneumoperitoneum was evacuated, the ports were removed. The wounds were closed with figure-of-8 Polysorb 0 suture for the fascia of the subxiphoid port and subcuticular Biosyn 4-0 sutures for the skin. The wound closure was reinforced with Dermabond. The patient was successfully extubated and transferred to the post-anesthesia care unit in satisfactory condition. ESTIMATED BLOOD LOSS: About 3 mL. WOUND CLASS: Clean-contaminated. The patient received 1 g of Ancef prior to the start of the procedure. Cynthia [id number] RODRIGUE
[2019-03-10] MEDS ORDERED: ONDANSETRON 4 MG/2 ML VIAL IVPUSH PRN (11:13)
[2019-03-10] MEDS ORDERED: PROMETHAZINE HCL 25 MG/1 ML VIAL IVPUSH PRN (11:13)
[2019-03-10] MEDS ORDERED: oxyCODONE HCL 5 MG TABLET PO PRN (11:13)
[2019-03-10] MEDS ORDERED: LACTATED RINGERS SOLUTION 1,000 ML IV SCH (11:15)
[2019-03-10] MEDS ORDERED: oxyCODONE HCL 5 MG TABLET ONE (13:43)
[2019-03-10] MEDS ORDERED: oxyCODONE HCL 5 MG TABLET PO ONE (13:46)
[2019-03-10 14:49] VITALS: BP 114/57; PULSE 58; TEMP 97.4
--- NOTE | 2019-03-13 15:08 | PATH ---
Surgical Pathology Report Patient Name: GILBERT SULLIVAN [facility]. Rec. #: [id number] /Age/Gender: 1990 (Age: 28) / F Account: [id number] Location: [facility] SURGICAL Taken: 03/10/2019 Received: 03/10/2019 Reported: 03/13/2019 Physicians: Karel Shelley M.D. Specimen(s) Received GALLBLADDER Clinical History Cholelithiasis Final Diagnosis GALLBLADDER, LAPAROSCOPIC CHOLECYSTECTOMY: CHRONIC CHOLECYSTITIS, CHOLESTEROLOSIS, AND CHOLELITHIASIS. Electronically Signed Awilda Cao M.D. Gross Description Received in formalin, labeled "gallbladder," is a 10.5 x 3.0 x 2.7 cm. gallbladder with a 0.2 cm. in length portion of cystic duct attached. The outer surface is munoz-virgen and varies from smooth to shaggy. The lumen contains green, tenacious bile as well as a blending yellow, irregular to fragmented choleliths ranging from 0.1-1.4 cm in greatest dimension. The mucosa is green with focal erosions. The wall of the gallbladder measures 0.1 cm. in thickness. Backend Tester sections are submitted in one cassette. 03/10/201903/10/2019
== END 2019-03-10 14:30 | disposition home or self-care (01) ==
LOC: JASU-SURG 04:42
PROVIDERS: ATTEND Surgery
PROC: 0FT44ZZ Resection of Gallbladder, Percutaneous Endoscopic Approach (ICD-10-PCS; principal; 2019-03-10 08:00)
DX: K80.10 Calculus of gallbladder with chronic cholecystitis without obstruction (principal)
CPT/HCPCS: 88304-TC; 94760

== ENCOUNTER 2021-07-02 15:07 | Observation (INO) | payer OTHER ==
[2021-07-02] MEDS ORDERED: ACETAMINOPHEN 1000 MG/100 ML VIAL IVPB ONE (16:22)
[2021-07-02] MEDS ORDERED: ACETAMINOPHEN INJECTION 100 ML IVPB ONE (16:25)
[2021-07-02 17:10] LABS: BASO % 0.7 % (0-2.0); EOS % 2.1 % (0-4.5); HEMATOCRIT 30.9 % (32.4-45.2); LYMPH % 24.4 % (8-40); MCH 22.9 pg (25.7-33.7); MCHC 32.4 g/dl (32.0-36.0); MEAN CELL VOLUME 70.9 fl (80-96); MEAN PLT VOLUME 7.4 fl (7.5-11.1); MONO % 9.1 % (3.8-10.2); NEUT % 63.7 % (42.8-82.8); PLATELET COUNT 446 10^3/uL (134-434); RBC 4.36 M/mm3 (3.60-5.2); RDW 16.3 % (11.6-15.6); WHITE BLOOD COUNT 6.7 K/mm3 (4.0-10.0)
[2021-07-02 17:12] LABS: URINE APPEARANCE CLEAR; URINE BILIRUBIN NEGATIVE (NEGATIVE); URINE COLOR YELLOW; URINE GLUCOSE (UA) NEGATIVE (NEGATIVE); URINE KETONE NEGATIVE (NEGATIVE); URINE LEUK ESTERASE NEGATIVE (NEGATIVE); URINE NITRITE NEGATIVE (NEGATIVE); URINE PROTEIN NEGATIVE (NEGATIVE); URINE UROBILINOGEN 0.2 mg/dL (0.2-1.0)
[2021-07-02 17:45] LABS: ALBUMIN 3.4 g/dl (3.4-5.0); ALK PHOS 109 U/L (45-117); ANION GAP 6 MMOL/L (8-16); BILIRUBIN,TOTAL 0.2 mg/dL (0.2-1); BLOOD UREA NITROGEN 6.9 mg/dL (7-18); CALCIUM 8.8 mg/dL (8.5-10.1); CHLORIDE 107 mmol/L (98-107); CO2 25 mmol/L (21-32); CREATININE 0.7 mg/dL (0.55-1.3); GLUCOSE,RANDOM 101 mg/dL (74-106); SGOT/AST 13 U/L (15-37); SGPT/ALT 22 U/L (13-61); SODIUM 138 mmol/L (136-145); TOT PROT 8.3 g/dl (6.4-8.2)
[2021-07-03] MEDS ORDERED: LACTATED RINGERS SOLUTION 1,000 ML/1,000 ML INFUS.BAG IV SCH
[2021-07-03] MEDS ORDERED: ACETAMINOPHEN 325 MG TABLET (FP) PO PRN (00:01)
[2021-07-03 03:16] VITALS: BMI 36.7
[2021-07-03 08:34] LABS: BASO % 1.7 % (0-2.0); EOS % 4.1 % (0-4.5); HEMATOCRIT 30.3 % (32.4-45.2); HEMOGLOBIN 9.7 GM/dL (10.7-15.3); MCHC 32.2 g/dl (32.0-36.0); MEAN CELL VOLUME 71.5 fl (80-96); MONO % 9.2 % (3.8-10.2); PLATELET COUNT 413 10^3/uL (134-434); RBC 4.23 M/mm3 (3.60-5.2); WHITE BLOOD COUNT 6.2 K/mm3 (4.0-10.0)
[2021-07-03 08:39] LABS: INR 1.11 (0.83-1.09); PROTHROMBIN TIME (PATIENT) 12.4 SEC (9.7-13.0)
[2021-07-03 08:41] LABS: ACTIVATED PTT 28.6 SECONDS (25.2-36.5)
[2021-07-03 10:09] LABS: CHOLESTEROL 144 mg/dL (50-200); CREATININE 0.7 mg/dL (0.55-1.3); HDL CHOLESTEROL 40 mg/dL (40-60); LDL CHOLESTEROL (ONLY SJRH) 82 mg/dL (5-100); TRIGLYCERIDES 91 mg/dL (0-150)
[2021-07-03 10:10] LABS: CALCIUM 8.8 mg/dL (8.5-10.1)
[2021-07-03 10:11] LABS: BILIRUBIN,TOTAL 0.2 mg/dL (0.2-1); TOT PROT 7.4 g/dl (6.4-8.2)
[2021-07-03] MEDS: ATENOLOL 25 MG TABLET (FP) PO SCH (10:33)
[2021-07-03] MEDS: ENOXAPARIN NA (PORCINE) 40 MG/0.4 ML DISP.SYRIN SQ SCH (10:33)
[2021-07-03 11:08] LABS: PHOSPHOROUS 3.6 mg/dL (2.5-4.9)
[2021-07-04] MEDS: ENOXAPARIN NA (PORCINE) 40 MG/0.4 ML DISP.SYRIN SQ SCH (09:07)
[2021-07-04] MEDS: ATENOLOL 25 MG TABLET (FP) PO SCH (09:08)
[2021-07-04] MEDS ORDERED: FERRIC CARBOXYMALTOSE 750 MG in SODIUM CHLORIDE 250 ML IVPB ONE (11:00)
[2021-07-04 16:55] VITALS: BP 128/60; PULSE 74; TEMP 97.2
[2021-07-10 00:06] LABS: METHYLMALONIC ACID- 180 nmol/L (0-378)
== END 2021-07-04 18:47 | disposition home or self-care (01) ==
LOC: JER 15:07 → INTOOBSV 19:41 → JERBED 19:41 → J4W 07-03 01:13
PROVIDERS: ADMIT Internal Medicine
PROC: 3E033GC Introduction of Other Therapeutic Substance into Peripheral Vein, Percutaneous Approach (ICD-10-PCS; principal; 2021-07-02)
PROC: 3E033NZ Introduction of Analgesics, Hypnotics, Sedatives into Peripheral Vein, Percutaneous Approach (ICD-10-PCS; 2021-07-02)
PROC: 3E0337Z Introduction of Electrolytic and Water Balance Substance into Peripheral Vein, Percutaneous Approach (ICD-10-PCS; 2021-07-02)
DX: R07.89 Other chest pain (principal); R73.03 Prediabetes; E66.8 Other obesity; Z68.36 Body mass index [BMI] 36.0-36.9, adult; E28.2 Polycystic ovarian syndrome; D36.7 Benign neoplasm of other specified sites; D64.9 Anemia, unspecified; O13.9 Gestational [pregnancy-induced] hypertension without significant proteinuria, unspecified trimester
CPT/HCPCS: 36415; 71046-TC-FY; 71275-TC; 80053; 80061; 81003; 82550; 82607; 82728; 83036; 83540; 83550; 83735; 83880; 83921; 84100; 84439; 84443; 84484; 84703; 85025; 85379; 85610; 85730; 87086; 93005; 93010; 93306-TC; 96365; 96375; 99285-25; C9803; G0378; J0131; J1439; U0003; U0005

== ENCOUNTER 2022-07-19 13:59 | Emergency (ER) | payer OTHER ==
[2022-07-19 14:24] VITALS: BP 124/70; PULSE 77; RESP 18; TEMP 98.5; BMI 32.3
[2022-07-19 15:39] LABS: BASO % 0.8 % (0-2.0); EOS % 2.6 % (0-4.5); HEMATOCRIT 35.9 % (32.4-45.2); HEMOGLOBIN 11.5 GM/dL (10.7-15.3); LYMPH % 26.4 % (8-40); MCH 26.2 pg (25.7-33.7); MONO % 19.2 % (3.8-10.2); PLATELET COUNT 297 10^3/uL (134-434); RBC 4.38 M/mm3 (3.60-5.2); RDW 13.9 % (11.6-15.6); WHITE BLOOD COUNT 5.2 K/mm3 (4.0-10.0)
[2022-07-19 16:02] LABS: CALCIUM 8.8 mg/dL (8.5-10.1)
[2022-07-19 16:03] LABS: ALBUMIN 3.4 g/dl (3.4-5.0); BLOOD UREA NITROGEN 10.1 mg/dL (7-18)
[2022-07-19 16:06] LABS: CREATININE 0.6 mg/dL (0.55-1.3)
[2022-07-19 16:07] LABS: BILIRUBIN,TOTAL 0.2 mg/dL (0.2-1)
== END 2022-07-19 18:32 | disposition home or self-care (01) ==
LOC: JER 13:59
DX: U07.1 COVID-19 (principal)
CPT/HCPCS: 0241U-QW; 36415; 71046-TC-FY; 80053; 84484; 85025; 93005; 93010; 99285-25